=== PATIENT | female | born 1940 | race Hispanic/Latino ===

== ENCOUNTER → 2019-03-16 | Outpatient (CLI) | payer MEDICARE ==
[~2019-03-16] MED LIST: CHOL200059 PO; HYDR12.530 PO; LEVO125T11 PO; METO-391 PO; METO50TA18 PO
== END | disposition home or self-care (01) ==
LOC: RAH 10:21
PROVIDERS: ATTEND Nurse Practitioner Family
DX: M51.36 Other intervertebral disc degeneration, lumbar region (principal)
CPT/HCPCS: 72100

== ENCOUNTER 2019-04-24 15:29 | Emergency (ER) | payer MEDICARE ==
[2019-04-24 16:33] LABS: BASOPHILS % (AUTO) 1.2 % (0.0-5.0); EOSINOPHILS % (AUTO) 0.8 % (0.0-8.0); HEMATOCRIT 37.4 % (36-48); LYMPHOCYTES % (AUTO) 15.2 % (21.0-51.0); MEAN CORPUSCULAR HEMOGLOBIN 33.7 pg (27.0-33.0); MEAN CORPUSCULAR HGB CONC 34.5 g/dL (32.0-36.0); MEAN CORPUSCULAR VOLUME 97.6 fL (79-99); MONOCYTES % (AUTO) 11.2 % (3.0-13.0); NEUTROPHILS % (AUTO) 71.6 % (40.0-77.0); NUCLEATED RED BLOOD CELLS 0.1 % (0.0-0.19); PLATELET COUNT (AUTO) 278 K/uL (130-400); RED BLOOD CELL COUNT(AUTO) 3.83 MIL/uL (4.00-5.50); RED CELL DISTRIBUTION WIDTH 13.9 % (11.0-15.5); WHITE BLOOD COUNT (AUTO) 7.8 K/uL (4.8-10.8)
[2019-04-24 16:41] LABS: CREATININE 0.8 mg/dL (0.5-1.5); POTASSIUM 4.3 mmol/L (3.5-5.1)
[2019-04-24 16:46] LABS: ALBUMIN 3.2 g/dL (3.5-5.0); BILIRUBIN,DIRECT 0.2 mg/dL (0.0-0.3); BILIRUBIN,TOTAL 0.8 mg/dL (0.2-1.0); TOTAL PROTEIN, SERUM 7.6 g/dL (6.0-8.3)
[2019-04-24 16:51] LABS: APPEARANCE,URINE CLEAR (CLEAR); BILIRUBIN,URINE MODERATE (NEGATIVE); COLOR,URINE YELLOW (YELLOW); GLUCOSE, URINE (UA) NEGATIVE (NEGATIVE); KETONES,URINE 5 mg/dL (NEGATIVE); LEUKOCYTE ESTERASE ,URINE MODERATE (NEGATIVE); NITRATE,URINE NEGATIVE (NEGATIVE); OCCULT BLOOD,URINE SMALL (NEGATIVE); PROTEIN,URINE TRACE mg/dL (NEGATIVE)
[2019-04-24 17:11] LABS: BACTERIA,URINE Few /HPF (None Seen); MUCUS,URINE Rare LPF (None Seen); SQUAMOUS EPITHELIAL CELL,UR Few /HPF (0-2)
[2019-04-24] MEDS ORDERED: ONDANSETRON ODT 4 MG TAB ONE (18:35)
[2019-04-24] MEDS ORDERED: ACETAMINOPHEN-CODEINE 300/30MG TAB ONE (18:35)
== END 2019-04-24 18:46 | disposition home or self-care (01) ==
LOC: EDH 15:29
DX: B02.9 Zoster without complications (principal); K52.9 Noninfective gastroenteritis and colitis, unspecified; I10 Essential (primary) hypertension; Z90.49 Acquired absence of other specified parts of digestive tract; Z87.891 Personal history of nicotine dependence
CPT/HCPCS: 36415; 80048; 80076; 81001; 82550; 83690; 84484; 85025; 93005

== ENCOUNTER → 2024-07-08 | Outpatient (CLI) | payer MEDICARE ==
[2024-07-08 12:19] LABS: BASOPHILS # (AUTO) 0.03 K/uL (0.00-0.20); BASOPHILS % (AUTO) 0.6 % (0.0-5.0); EOSINOPHILS # (AUTO) 0.09 K/uL (0.00-0.70); EOSINOPHILS % (AUTO) 1.8 % (0.0-8.0); HEMATOCRIT 29.9 % (36-48); IMMATURE GRANULOCYTE ABSOLUTE 0.02 K/uL (0-1); LYMPHOCYTES # (AUTO) 1.2 K/uL (1.0-4.8); LYMPHOCYTES % (AUTO) 24.4 % (21.0-51.0); MEAN CORPUSCULAR HEMOGLOBIN 32.5 pg (27.0-33.0); MEAN CORPUSCULAR HGB CONC 33.1 g/dL (32.0-36.0); MONOCYTES # (AUTO) 0.4 K/uL (0.1-1.0); MONOCYTES % (AUTO) 8.6 % (3.0-13.0); NEUTROPHILS # (AUTO) 3.1 K/uL (1.8-7.7); NEUTROPHILS % (AUTO) 64.2 % (40.0-77.0); PLATELET COUNT (AUTO) 206 K/uL (130-400); RED BLOOD CELL COUNT(AUTO) 3.05 MIL/uL (4.00-5.50); RED CELL DISTRIBUTION WIDTH 12.7 % (11.0-15.5); WHITE BLOOD COUNT (AUTO) 4.9 K/uL (4.8-10.8)
[2024-07-08 12:34] LABS: ALBUMIN 2.4 g/dL (3.5-5.0); BILIRUBIN,TOTAL 0.6 mg/dL (0.2-1.0); CREATININE 0.7 mg/dL (0.5-1.0); THYROID STIMULATING HORMONE 0.09 uIU/mL (0.36-3.74); TOTAL PROTEIN, SERUM 6.6 g/dL (6.0-8.3)
[2024-07-08 12:58] LABS: POTASSIUM 2.8 mmol/L (3.5-5.1)
--- NOTE | 2024-07-08 13:02 | HMCIMG ---
CHEST 1VW REASON: ABNORMAL WEIGHT LOSS COMPARISON: 06/04/2019 FINDINGS: Single view of the chest was obtained. Lungs are clear. Heart size is normal. There is no pulmonary vascular congestion. Mediastinum and bony thorax appear unremarkable. IMPRESSION: 1. Normal single view chest x-ray.
== END | disposition home or self-care (01) ==
LOC: RAH 11:52
PROVIDERS: ATTEND Internal Medicine Gastroenterology
DX: R63.4 Abnormal weight loss (principal)
CPT/HCPCS: 36415; 71045; 80053; 84443; 85025

== ENCOUNTER → 2024-07-09 | Outpatient (CLI) | payer MEDICARE ==
--- NOTE | 2024-07-09 11:42 | HMCIMG ---
CT ABDOMEN/PELVIS W/O CONTRAST REASON: ABN WEIGHT LOSS COMPARISON: None. TECHNIQUE: Images are obtained from lung bases to symphysis pubis following oral contrast. FINDINGS: Lung bases are clear. There are no focal liver lesions. There are normal-appearing kidneys.. There is a 9 mm evidence of calcified splenic artery aneurysm. Spleen and pancreas appear otherwise unremarkable.. There has been a previous cholecystectomy. Bowel loops appear unremarkable. The appendix was not separately identified. There is no evidence of free fluid or intraperitoneal air. There are no focal fluid collections. Aorta and retroperitoneum appear normal as do pelvic soft tissue structures. The anterior abdominal wall is intact. Osseous structures appear unremarkable. IMPRESSION: 1. No acute finding in the abdomen or pelvis. 2. 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 3. Absent gallbladder. CT was performed with one or more following dose reduction techniques: automated exposure control, adjustment of the mA and kv according to patient's size, or use of a iterative reconstruction technique.
== END | disposition home or self-care (01) ==
LOC: RAH 07:55
PROVIDERS: ATTEND Internal Medicine Gastroenterology
DX: I72.8 Aneurysm of other specified arteries (principal); R63.4 Abnormal weight loss; Z90.49 Acquired absence of other specified parts of digestive tract
CPT/HCPCS: 74176

== ENCOUNTER → 2024-08-11 | Emergency (ER) | payer MEDICARE ==
[~2024-08-11] VITALS: Ht 152.4 cm; Wt 52.6 kg
--- NOTE | 2024-08-11 20:31 | EKG ---
[facility] Test Date: 2024-08-11 Test Time: 20:16:41 Pat Name: NAYA ALVARADO Department: ED Room: Gender: F Dispatch Manager: [id number] Requested By: ALEX HONG Order Number: [id number] Reading MD: Bright Diaz Measurements Intervals [place] Rate: 79 P: 61 NE: 146 QRS: 7 QRSD: 93 T: 64 QT: 410 QTc: 456 Interpretive Statements Sinus rhythm Atrial premature complexes Consider left ventricular hypertrophy Nonspecific T abnormalities, lateral leads Compared to ECG 06/04/2019 09:30:27 T-wave abnormality now present Early repolarization no longer present Electronically Signed On 08-12-2024 12:50:20 SPOTTER by Bright Diaz Please click the below link to view image of tracing.
[2024-08-11 20:59] VITALS: BP 164/68; PULSE 79; RESP 20; TEMP 98.2
[2024-08-11 21:14] LABS: BASOPHILS # (AUTO) 0.04 K/uL (0.00-0.20); BASOPHILS % (AUTO) 0.6 % (0.0-5.0); EOSINOPHILS # (AUTO) 0.06 K/uL (0.00-0.70); HEMATOCRIT 31.3 % (36-48); IMMATURE GRANULOCYTE ABSOLUTE 0.03 K/uL (0-1); LYMPHOCYTES # (AUTO) 0.9 K/uL (1.0-4.8); LYMPHOCYTES % (AUTO) 15.3 % (21.0-51.0); MEAN CORPUSCULAR HEMOGLOBIN 32.5 pg (27.0-33.0); MEAN CORPUSCULAR HGB CONC 32.6 g/dL (32.0-36.0); MEAN CORPUSCULAR VOLUME 99.7 fL (79-99); MONOCYTES # (AUTO) 0.5 K/uL (0.1-1.0); MONOCYTES % (AUTO) 8.4 % (3.0-13.0); NEUTROPHILS # (AUTO) 4.6 K/uL (1.8-7.7); NEUTROPHILS % (AUTO) 74.2 % (40.0-77.0); PLATELET COUNT (AUTO) 276 K/uL (130-400); RED BLOOD CELL COUNT(AUTO) 3.14 MIL/uL (4.00-5.50); RED CELL DISTRIBUTION WIDTH 13.4 % (11.0-15.5); WHITE BLOOD COUNT (AUTO) 6.2 K/uL (4.8-10.8)
[2024-08-11 21:23] LABS: CREATININE 0.7 mg/dL (0.5-1.0); POTASSIUM 3.8 mmol/L (3.5-5.1)
--- NOTE | 2024-08-11 21:24 | HMCIMG ---
CHEST 1VW HISTORY: Shortness of breath COMPARISON: 07/02/2024 FINDINGS: A frontal projection of the chest was obtained. There are bilateral pulmonary infiltrates suggestive of pulmonary vascular congestion with possible superimposed pneumonitis. The heart is borderline enlarged. Degenerative changes are seen. No evidence of aortic calcification is seen. IMPRESSION: 1. Bilateral pulmonary infiltrates are seen suggestive of pulmonary vascular congestion with possible superimposed pneumonitis.
[2024-08-11 21:41] LABS: B-TYPE NATRIURETIC PEPTIDE 287 pg/mL (0-100)
--- NOTE | 2024-08-11 22:36 | NUR ---
PT'S DAUGHTER DECIDED TO TAKE PT TO [facility] TOMORROW MORNING
--- NOTE | 2024-08-12 04:24 | ERN ---
General Chief Complaint: Shortness of Breath Stated Complaint: SOB Time Seen by MD: 20:12 Time Seen by Midlevel: 20:12 Source: patient, family History of Present Illness Initial Comments 84-year-old female who presents to the emergency department due to shortness of breath. Family members report initiated earlier today and resolved prior to arrival to the ED. Denies any chest pain, cough, congestion or further associated symptoms. Per family member patient has a history of anxiety and does not know if this was a panic attack. Patient denies any current symptoms. PMHx dementia Allergies: Coded Allergies: No Known Drug Allergies (Unverified Allergy, Unknown, 03/02/16) Home Meds Reported Medications Levothyroxine Sodium (Levothyroxine Sodium) 125 Mcg Tablet, 125 MCG PO DAILY, TAB 03/02/16 Metoprolol Tartrate (Metoprolol Tartrate) 50 Mg Tablet, 50 MG PO HS, TAB 03/02/16 Metoprolol Succinate (Metoprolol Succinate) 50 Mg Tab.er.24h, 50 MG PO DAILY, TAB 03/02/16 Cholecalciferol (Vitamin D3) (Vitamin D-3) 2,000 Unit Tablet, 63983 UNIT PO QWEEK, TAB 03/02/16 Hydrochlorothiazide (Hydrochlorothiazide) 12.5 Mg Capsule, 12.5 MG PO DAILY, CAP 03/02/16 Past Medical History Past Medical History: Dementia Past Surgical History: Unknown ROS Dictation Constitutional: Negative for fever,chills, and weight loss Eyes: Negative for injury, pain,redness, and discharge ENT: Negative for injury,pain or swelling Cardiovascular: Negative for chest pain, palpitations, and edema Respiratory: Positive shortness of breath Negative for cough, and wheezing, Abdomen/GI: Negative for abdominal pain, nausea, vomiting, diarrhea, and constipation Back: Negative for injury and pain : Negative for painful urination, bleeding or discharge MS/Extremity: Negative for injury and deformity Skin: Negative for rash, and discoloration Neuro: Negative for headache, weakness, numbness, tingling, and seizure Psych: Negative for suicide ideation, homicidal ideation, and hallucinations Physical Exam Physical Exam Dictation General: awake, alert, no acute distress Head/Face: Normocephalic, atraumatic Eyes: PERRL, EOMI, normal conjunctiva ENT: oral cavity clear, oral mucosa moist Neck: Supple, normal range of motion Cardiovascular: RRR, normal S1/S2 Respiratory: CTAB, no respiratory distress, no rales or wheezes Abdomen: Soft, non-tender, non-distended, normal bowel sounds, no guarding or rebound. Skin: Warm, dry, normal turgor, no rash MS/Extremity: Pulses equal, no cyanosis, neurovascular intact, FROM Neuro: COAx4, GCS 15, strength 5/5, CN 2-12 intact, normal cerebellar exam Psych: Normal behavior, mood, and affect normal Results Laboratory and Microbiology Lab and Micro Result Laboratory Tests Test 08/11/24 20:52 White Blood Count 6.2 K/uL (4.8-10.8) Red Blood Count 3.14 MIL/uL (4.00-5.50) L Hemoglobin 10.2 g/dL (12.0-16.0) L Hematocrit 31.3 % (36-48) L Mean Corpuscular Volume 99.7 fL (79-99) H Mean Corpuscular Hemoglobin 32.5 pg (27.0-33.0) Mean Corpuscular Hemoglobin Concent 32.6 g/dL (32.0-36.0) Red Cell Distribution Width 13.4 % (11.0-15.5) Platelet Count 276 K/uL (130-400) Mean Platelet Volume 11.1 fL (7.5-10.5) H Immature Granulocyte % (Auto) 0.5 % (0-1) Neutrophils (%) (Auto) 74.2 % (40.0-77.0) Lymphocytes (%) (Auto) 15.3 % (21.0-51.0) L Monocytes (%) (Auto) 8.4 % (3.0-13.0) Eosinophils (%) (Auto) 1.0 % (0.0-8.0) Basophils (%) (Auto) 0.6 % (0.0-5.0) Neutrophils # (Auto) 4.6 K/uL (1.8-7.7) Lymphocytes # (Auto) 0.9 K/uL (1.0-4.8) L Monocytes # (Auto) 0.5 K/uL (0.1-1.0) Eosinophils # (Auto) 0.06 K/uL (0.00-0.70) Basophils # (Auto) 0.04 K/uL (0.00-0.20) Absolute Immature Granulocyte (auto 0.03 K/uL (0-1) Nucleated Red Blood Cells 0.0 % (0.0-0.19) Sodium Level 138 mmol/L (136-145) Potassium Level 3.8 mmol/L (3.5-5.1) Chloride Level 104 mmol/L (101-111) Carbon Dioxide Level 30 mmol/L (21-32) Blood Urea Nitrogen 11 mg/dL (7-18) Creatinine 0.7 mg/dL (0.5-1.0) Glomerular Filtration Rate Calc 86 mL/min (>90) Random Glucose 102 mg/dL (70-105) Total Calcium 9.3 mg/dL (8.5-10.1) Troponin I High Sensitivity 15 ng/L (4-50) B-Type Natriuretic Peptide 287 pg/mL (0-100) H Labs Reviewed?: Yes EKG/XRAY/US/CT/MRI X-RAY Comment REASON: SOB ORDERING PHYSICIAN: ALEX HONG PROCEDURE: CXR1VW - CHEST 1VW CHEST 1VW HISTORY: Shortness of breath COMPARISON: 07/02/2024 FINDINGS: A frontal projection of the chest was obtained. There are bilateral pulmonary infiltrates suggestive of pulmonary vascular congestion with possible superimposed pneumonitis. The heart is borderline enlarged. Degenerative changes are seen. No evidence of aortic calcification is seen. IMPRESSION: 1. Bilateral pulmonary infiltrates are seen suggestive of pulmonary vascular congestion with possible superimposed pneumonitis. DICTATED BY: ANN REVELES MD DATE: 08/11/242120 [facility] MDM: Differential diagnosis: PE, ND, pneumonia Rationale: 84-year-old female who presents to the emergency department due to shortness of breath. Family members report initiated earlier today and resolved prior to arrival to the ED. Denies any chest pain, cough, congestion or further associated symptoms. Per family member patient has a history of anxiety and does not know if this was a panic attack. Patient denies any current symptoms. PMHx dementia Per physical examination patient is in no acute distress, nonlabored breathing, vitals within normal limits, O2 saturation 97% on room air. Labs obtained indicate anemia with hemoglobin of 10.2, BNP 287, troponin within normal limits. CXR indicates bilateral pulmonary infiltrates suggestive of pulmonary vascular congestion. Patient eloped. There are no social concerns with this patient. I independently interpreted the test that were performed, results were reviewed by me and considered findings on radiology if ordered. Medical management and examination interpretation discussions were had by me with other qualified healthcare professionals as indicated for the patient's care. ED Course Orders Procedure Category Date Status Time Cbc With Differential LAB 08/11/24 Complete 20:13 Basic Metabolic Panel LAB 08/11/24 Complete 20:13 B-Type Natriuretic LAB 08/11/24 Complete Peptide 20:13 Chest 1vw RAD 08/11/24 Resulted 20:13 Troponin I High LAB 08/11/24 Complete Sensitivity 20:13 12 Lead Ekg Tracing- EKG 08/11/24 Resulted Technical 20:13 Vital Signs Date Time Temp Pulse Resp B/P (MAP) Pulse Ox O2 Delivery O2 Flow Rate FiO2 08/11/24 20:59 98.2 79 20 164/68 97 Room Air DX & DISP Disposition: Other(Comment) (Eloped) Departure Impression: Primary Impression: Wellness examination Additional Impression: Shortness of breath Condition: Stable Referrals: CARLOTA ROBLES (PCP) I performed the substantive portion of the visit. I have reviewed and perso mireya made and approve the management plan that is documented in the notes by myself or the ROCIO. I acknowledge full responsibility for the patient's management plan. ALEX HONG Aug 12, 2024 04:24
== END ==
LOC: EDH 19:44
DX: R06.02 Shortness of breath (principal); F41.9 Anxiety disorder, unspecified; Z79.890 Hormone replacement therapy; Z79.899 Other long term (current) drug therapy
CPT/HCPCS: 36415; 71045; 80048; 83880; 84484; 85025; 93005; 99285